=== PATIENT | male | born 1975 | race Caucasian/White ===

== ENCOUNTER 2018-04-21 20:23 | Emergency (ER) | payer OTHER, MEDICAID, SELFPAY ==
[2018-04-21 20:30] VITALS: BP 128/77; PULSE 68; RESP 18; TEMP 36.4; O2SAT 98; BMI 45.9
[2018-04-21] MEDS: CLINDAMYCIN 150 MG CAPSULE 300 MG PO (20:40)
[2018-04-21] MEDS: HYDROCODONE/ACET 5/325 PREPACK 1 BOTTLE MISC (20:46)
--- NOTE | 2018-04-21 20:50 | ED_ITS ---
HPI - Dental/Oral General Chief complaint: Dental/Oral Stated complaint: FACE IS SWELLING Time Seen by Provider: 04/21/18 20:31 Source: patient and family Mode of arrival: ambulatory Limitations: no limitations History of Present Illness HPI Narrative: 42-year-old daily smoker presents with 1 day left-sided facial pain with mild swelling. He has a bad tooth in suggested maybe coming from that. He denies any drainage, fever or chills. He denies any recent trauma. He is otherwise well and free of complaint. MD Complaint: tooth injury 2 1. Onset (ago): hour(s) Duration: constant Severity: mild Relieving factors: nothing Exacerbating factors: nothing Context: history of dental caries Treatment prior to arrival: oral analgesic Related Data Previous Rx's Medication Instructions Recorded codeine-guaifenesin [Cheratussin 5 - 10 ml PO Q4HP PRN #118 ml 05/12/16 AC] clindamycin HCl 300 mg PO QID 7 Days #28 cap 04/21/18 Allergies Allergy/AdvReac Type Severity Reaction Status Date / Time Penicillins [PENICILLINS] Allergy Unknown Verified 04/21/18 20:33 Review of Systems Review of Systems All systems reviewed & are unremarkable except as noted in HPI and below Constitutional Denies chills, Denies fever(s), Denies lethargy and Denies weakness Eyes Denies change in vision, Denies eye discharge, Denies irritation and Denies loss of vision ENT Ears, Nose, Mouth, and Throat: Denies change in voice, Reports dental pain, Denies neck pain and Denies sore throat Cardiovascular Denies chest pain, Denies irregular heart rhythm, Denies lightheadedness, Denies palpitations, Denies dyspnea, Denies dyspnea on exertion and Denies orthopnea Respiratory Denies cough, Denies dyspnea, Denies dyspnea on exertion and Denies wheezing Gastrointestinal Gastrointestinal: Denies abdominal pain, Denies change in bowel habits, Denies diarrhea, Denies nausea and Denies vomiting Genitourinary Denies hematuria, Denies flank pain, Denies urinary incontinence and Denies urinary urgency Musculoskeletal Denies neck pain Integumentary/Breasts Denies pruritus, Denies erythema, Denies rash and Denies wounds Neurologic Denies confusion, Denies loss of vision and Denies weakness Psychiatric Denies anxiety, Denies confusion, Denies depression, Denies homicidal ideation and Denies suicidal ideation Endocrine Denies palpitations Hematologic/Lymphatic Denies easy bruising Allergic/Immunologic Denies wheezing Exam Narrative Exam Narrative: GEN: AOx3 and in mild distress EYES: Pupils are equal, round, and reactive to light and accommodation. Extraoccular muscles are intact bilaterally. There is no subconjunctival hemorrhage or exudate. FACE: mild L facial swelling, no warmth, erythema, induration or fluctuance. DENTAL: widespread poor dentition, old fractured tooth in left upper. No abscess CHEST: Lungs are clear to auscultation bilaterally and free of wheezes, rales, or rhonchi. Heart rate is regular rhythm, there are no murmurs, clicks, rubs, or gallops. There is no chest wall tenderness. ABD: Abdomen is soft and nontender. There is no guarding or rebound. Bowel sounds are normal in all 4 quadrants. There is no mass or organomegaly. EXT: Full painless ROM of all extremities with no loss of sensation or strength. SKIN: Warm, pink, and dry. No erythema or rash Initial Vital Signs Initial Vital Signs: Vital Signs Temperature 97.5 F L 04/21/18 20:30 Pulse Rate 68 04/21/18 20:30 Respiratory Rate 18 04/21/18 20:30 Blood Pressure 128/77 04/21/18 20:30 Pulse Oximetry 98 04/21/18 20:30 Course Orders Ordered: Discontinued Medications Hydrocodone Bitart/Acetaminophen (Vicodin Prepack) 1 bottle MISC SEEINSTR ONE Stop: 04/21/18 20:44 Last Admin: 04/21/18 20:46 Dose: 1 bottle Clindamycin HCl (Cleocin) 300 mg PO NOW ONE Stop: 04/21/18 20:37 Last Admin: 04/21/18 20:40 Dose: 300 mg Vital Signs - 8 hr 04/21/18 20:30 Temperature 97.5 F L Pulse Rate 68 Respiratory Rate 18 Blood Pressure 128/77 Pulse Oximetry 98 Discharge Plan Departure Patient Disposition: Home Clinical Impression: Dental abscess Discharge Date/Time: 04/21/18 21:03 Interventions: ED Discharge Assessment Last Done: 04/21/18 21:03 Instructions: DI for Dental Pain Activity Restrictions/Additional Instructions: *You have been diagnosed with [ facial swelling, dental pain ] *What to do: *Take medications as directed *Follow up with your dental provider in 2-3 days, call for an appointment. Let them know you were seen in the Emergency Department and that we ask that you be seen in follow up *Return to ER if you should have any new, worsening or concerning symptoms Prescriptions: New clindamycin HCl 300 mg capsule 300 mg PO QID 7 Days Qty: 28 RF: 0 No Action codeine-guaifenesin [Cheratussin AC] 118 ML liquid 5 - 10 ml PO Q4HP PRNQty: 118 RF: 0
== END 2018-04-21 21:03 | disposition home or self-care (01) ==
PROVIDERS: Emergency Provider Emergency Medicine
DX: K04.7 Periapical abscess without sinus (principal)
CPT/HCPCS: 99282

== ENCOUNTER 2018-04-22 02:26 | Inpatient (IN) | payer OTHER, MEDICAID, SELFPAY ==
[2018-04-22] VITALS (37 sets, daily range): BP systolic 87–204; BP diastolic 38–130; PULSE 57–91; RESP 14–24; TEMP 36.4–37; O2SAT 89–100; BMI 53.9; BMI 54.1
--- NOTE | 2018-04-22 | DI.RAD.S_ITS ---
PROCEDURE: XR CHEST 1V INDICATIONS: intubation, allergic reaction, NG Placement TECHNIQUE: One view of the chest was acquired. COMPARISON: [facility], , CHEST 1 VIEW, 03/22/2017, 8:24. FINDINGS: Surgical changes and devices: ET tube projects approximately 3.1 cm superior to the gold. Tube is coiled within the neck which likely represents NG tube. Lungs and pleura: No pleural effusions or pneumothorax. Lungs are hypoinflated. Increased opacification at the left lung base which could represent atelectasis, aspiration or pneumonia. Mediastinum: Mediastinal contours appear normal. Heart size is normal. Bones and chest wall: No suspicious bony lesions. Overlying soft tissues appear unremarkable. IMPRESSION: ET tube projects approximately 3.1 cm superior to the gold. Probable NG tube is coiled within the neck. Dictated by: Usha Tsai MD, PhD on 04/22/2018 at 9:06 Approved by: Usha Tsai MD, PhD on 04/22/2018 at 9:07
[2018-04-22] MEDS: ONDANSETRON 4 MG/2 ML INJ IV (02:45)
--- NOTE | 2018-04-22 02:45 | PC.NURSE ---
Pt presents with worsening facial swelling. Pt now unable to handle secretions and audible stridor. Dr Mccall was immediately at bedside. 0245--18G PIV established in L and R AC's. 0250--Lidocaine jelly gargle and 2% Lidocaine nebulized. 025--100 mg Propofol given x2 for a total of 200mg by Dr Mccall. 100 mg Rocuronium given Intubation attempted with 7.5 russian 030--Abdominal distention noted, extubated, re-intubated. 301--RT bagging. Stomach contents coming out ET tube. Suction performed. 306--Extubated 030--RT using BVM to bag pt. 0311--10 mg Reglan given 031--Re-intubated with 7.5 russian, CO2 color change to yellow noted. Equal rise and fall of chest when bagged. 0319--16G NG tube placed in L Nare. 0325--Propofol drip started per order. 0345--16 Occitan deras placed.
--- NOTE | 2018-04-22 02:45 | PC.NURSE ---
Pt presented for worsening facial swelling, compared to earlier this evening breathing now labored and stridorous.
[2018-04-22 02:50] LABS: Add Manual Diff / Slide Review NO; Basophils Percent Auto 0.9 % (0-2); Eosinophils Percent Auto 3.5 % (2-4); Hematocrit 40.6 % (41-53); Hemoglobin 13.6 g/dL (13.5-17.5); Lymphocytes Percent Auto 13.5 % (25-40); Mean Corpuscular HGB Conc 33.5 % (30-36); Mean Corpuscular Hemoglobin 27.6 PG (26-34); Mean Corpuscular Volume 82.5 fL (80-100); Monocytes Percent Auto 10.4 % (3-14); Neutrophils Absolute Auto 8600 /uL (1500-7000); Neutrophils Percent Auto 71.7 % (50-75); Platelet Count 228 X10^3/uL (150-400); Red Blood Cell Count 4.92 X10^6/uL (4.5-5.9); Red Cell Distribution Width 15.8 % (11.6-14.8)
[2018-04-22] MEDS: KETAMINE 500 MG/5 ML INJ 160 MG IV (02:54)
[2018-04-22 02:59] LABS: Alanine Aminotransferase 35 IU/L (21-72); Albumin 3.9 g/dL (3.5-5.0); Albumin Globulin Ratio 1.2 (1.0-2.8); Alkaline Phosphatase 93 U/L (38-126); Aspartate Aminotransferase 24 IU/L (17-59); BUN Creatinine Ratio 18.8 (6-22); Bilirubin Total 0.4 mg/dL (0.2-1.3); Blood Urea Nitrogen 15 mg/dL (9-20); Calcium 8.8 mg/dL (8.4-10.2); Carbon Dioxide 26 mmol/L (22-32); Chloride 102 mmol/L (98-107); Estimated Glomerular Filt Rate > 60.0 mL/min (>60); Globulin 3.2 g/dL (1.7-4.1); Glucose 249 mg/dL (70-100); HEMOLYSIS 18 (0-50); Potassium 4.1 mmol/L (3.4-5.1); Sodium 138 mmol/L (137-145); Total Protein 7.1 g/dL (6.3-8.2)
[2018-04-22] MEDS: PROPOFOL 200 MG/20 ML VIAL IV (02:59)
[2018-04-22] MEDS: ROCURONIUM 50 MG/5 ML VIAL 100 MG IV (02:59)
[2018-04-22] MEDS: METOCLOPRAMIDE 10 MG/2 ML INJ IV (03:10)
[2018-04-22] MEDS: PROPOFOL 1,000 MG/100 ML VIAL 19.323 MG IV ×2 (03:25→08:45)
[2018-04-22] MEDS: fentaNYL 100 MCG/2 ML INJ IV ×2 (03:35→04:20)
--- NOTE | 2018-04-22 03:48 | ED_ITS ---
HPI - Allergic Reaction General Chief complaint: Allergic Reaction Stated complaint: facial swelling Time Seen by Provider: 04/22/18 02:29 Source: patient and family Mode of arrival: ambulatory Limitations: no limitations History of Present Illness HPI narrative: 42-year-old smoking male returns for the 2nd time this evening and worsening left-sided facial swelling and complains of the sensation that he is choking on his own spit. He feels swelling in his throat. He does have sleep apnea and morbid obesity at baseline. He was seen earlier for dental pain and left-sided facial swelling. At that point time he had minimal left- sided facial swelling and no stridor or possible airway involvement. He was given a clindamycin prepack and hydrocodone prepack MD complaint: allergic reaction and facial swelling Onset (ago): hour(s) Exposure: medication Symptoms: facial swelling and difficulty swallowing Severity: moderate Treatment prior to arrival: steroids Previous Allergic Reaction History: none Related Data Previous Rx's Medication Instructions Recorded codeine-guaifenesin [Cheratussin 5 - 10 ml PO Q4HP PRN #118 ml 05/12/16 AC] clindamycin HCl 300 mg PO QID 7 Days #28 cap 04/21/18 Allergies Allergy/AdvReac Type Severity Reaction Status Date / Time Penicillins [PENICILLINS] Allergy Unknown Verified 04/21/18 20:33 Review of Systems Review of Systems All systems reviewed & are unremarkable except as noted in HPI and below Constitutional Denies chills, Denies fever(s), Denies lethargy and Denies weakness Eyes Denies change in vision, Denies eye discharge, Denies irritation and Denies loss of vision ENT Ears, Nose, Mouth, and Throat: Reports change in voice, Denies neck pain, Denies sore throat and Reports throat swelling Cardiovascular Denies chest pain, Denies irregular heart rhythm, Denies lightheadedness, Denies palpitations, Reports dyspnea, Denies dyspnea on exertion and Denies orthopnea Respiratory Reports cough, Reports dyspnea, Denies dyspnea on exertion and Denies wheezing Gastrointestinal Gastrointestinal: Denies abdominal pain, Denies change in bowel habits, Denies diarrhea, Denies nausea and Denies vomiting Genitourinary Denies hematuria, Denies flank pain, Denies urinary incontinence and Denies urinary urgency Musculoskeletal Denies neck pain Integumentary/Breasts Denies pruritus, Denies erythema, Denies rash and Denies wounds Neurologic Denies confusion, Denies loss of vision and Denies weakness Psychiatric Denies anxiety, Denies confusion, Denies depression, Denies homicidal ideation and Denies suicidal ideation Endocrine Denies palpitations Hematologic/Lymphatic Denies easy bruising Allergic/Immunologic Reports throat swelling and Denies wheezing Exam Narrative Exam Narrative: GENERAL: 42-year-old male with distinct change prior to earlier. In distress, with stridor HEAD: Atraumatic. Normocephalic. No temporal or scalp tenderness. EYES: Pupils equal round and reactive. Extraocular motions intact. No scleral icterus. No injection or drainage. ENT: Nose without bleeding, purulent drainage or septal hematoma. Throat without erythema, tonsillar hypertrophy or exudate. Uvula midline. Airway patent. NECK: Trachea midline. No JVD or lymphadenopathy. Supple, nontender, no meningeal signs. CARDIOVASCULAR: Regular rate and rhythm without murmurs, gallops, or rubs. RESPIRATORY: Stridor lung sounds. Breath sounds equal bilaterally. No wheezes, rales, or rhonchi. GASTROINTESTINAL: Abdomen soft, non-tender, nondistended. No hepato-splenomegaly , or palpable masses. No guarding. EXTREMITIES: No clubbing, cyanosis, or edema. No joint tenderness, effusion, or edema noted. BACK: Nontender without deformity or crepitance. No flank tenderness. NEURO: AOx3. SKIN: No rash or erythema. Initial Vital Signs Initial Vital Signs: Vital Signs Pulse Rate 79 04/22/18 02:30 Respiratory Rate 21 04/22/18 02:30 Blood Pressure 149/87 H 04/22/18 02:30 Pulse Oximetry 97 04/22/18 02:30 Procedures Intubation Time out performed: Yes sedative: Ketamine Mg Given: 160 paralytic: Rocuronium Mg Given: 100 Laryngoscope: other Assist Device Used: Bougie ET Tube Size: 7.5 ET Tube Uncuffed: No Tube Secured Depth (cm): 25 Tube Secured Location: lips Tube Placement Confirmation: Visualized tube passing through cords and Equal breath sounds bilaterally Additional Comments: see above. Intubation successful but became dislodged during movement and likely become an esophageal airway, patient had extensive vomitus and likely aspiration. Course Orders Ordered: ED Orders 04/22/18 XR chest 1V Stat 04/22/18 02:35 Complete Blood Count AUTO DIFF Stat Comprehensive Metabolic Panel Stat 04/22/18 02:43 Blood Culture Stat 04/22/18 04:05 Arterial Blood Gas Routine 04/22/18 04:09 CT soft tissue neck w con Stat Propofol (Propofol) 1,000 mg in 100 mls @ 19.323 mls/hr IV TITRATE TAMRA; Protocol Last Admin: 04/22/18 03:25 Dose: 20 mcg/kg/min, 19.323 mls/hr Ondansetron HCl (Zofran) 4 mg IV Q4HR PRN PRN Reason: Nausea And Vomiting Last Admin: 04/22/18 02:45 Dose: 4 mg Discontinued Medications Fentanyl (Sublimaze) 100 mcg IV NOW ONE Stop: 04/22/18 03:36 Last Admin: 04/22/18 03:35 Dose: 100 mcg Fentanyl (Sublimaze) 100 mcg IV NOW ONE Stop: 04/22/18 04:21 Last Admin: 04/22/18 04:20 Dose: 100 mcg Dexamethasone 20 mg/ Sodium (Chloride) 52 mls @ 208 mls/hr IV NOW ONE Stop: 04/22/18 02:43 Last Infusion: 04/22/18 04:45 Dose: 0 mls/hr Admin: 04/22/18 04:30 Dose: 208 mls/hr Sodium Chloride (Normal Saline 0.9%) 1,000 mls @ 1,000 mls/hr IV BOLUS ONE Stop: 04/22/18 03:41 Last Admin: 04/22/18 04:50 Dose: 150 mls/hr Ketamine HCl (Ketalar) 160 mg 1 mg/kg (160 mg) IV NOW ONE Stop: 04/22/18 02:45 Last Admin: 04/22/18 02:54 Dose: 160 mg Metoclopramide HCl (Reglan) 10 mg IV NOW ONE Stop: 04/22/18 03:11 Last Admin: 04/22/18 03:10 Dose: 10 mg Propofol (Diprivan) 200 mg IV NOW ONE Stop: 04/22/18 02:56 Last Admin: 04/22/18 02:59 Dose: 200 mg Rocuronium Jolo (Zemuron) 100 mg IV NOW ONE Stop: 04/22/18 04:20 Last Admin: 04/22/18 02:59 Dose: 100 mg Reevaluation(s) Reevaluation #1: discussed severity of illness with patient and worry about possible airway compromise, compounded by the hx of MARIO and morbid obesity. We discussed awake intubation and prepared for possible cric if needed. Patient had only unilateral swelling and pain which is worse than earlier. Allergic reaction considered, but thought less likely than infectious etiology given lack of tongue, or lip swelling, no wheeze, and no pruritic rash or hives. Larger concern for extension of infectious etiology extending into throat. Patient provided verbal consent to process. Aerosolized lidocaine and viscous lido provided along with zofran. Difficult airway cart to bedside including bougie and 11 blade. Patient given ketamine and was successfully intubated on first pass will sitting upright, visualized by glidescope with placement by bougie. Patient given bolus of propofol and rocuronium. Equal B/L breathsounds. Patient was lowered flat and became difficult to bag and then began vomiting copious amounts of food colored emesis. He had continued desaturations and then emesis came out ETT. Extensive suctioning was unsuccessful and tube was removed. He was successfully bagged back up to 90s while new ETT acquired. Suspect the tube became dislodged while he was repositioned. Extensive suctioning peformed and NG placed. Patient again successfully intubated on 1st pass with video laryngoscopy and patient easily bagged up to low 90s. CXR confirms placement. Consultations Consultation #1: Dr. Núñez happy to accept. Request to hold for 45 minutes until new doc arrives. Patient remains stable. Discussion regarding etiology of airway compromise. Will hold on further ABX for now Vital Signs - 8 hr 04/22/18 02:30 04/22/18 02:35 04/22/18 02:37 Temperature 98.6 F Pulse Rate 79 70 83 Respiratory Rate 21 14 23 Blood Pressure Blood Pressure [Right Arm] 149/87 H 149/78 H Pulse Oximetry 97 99 04/22/18 02:42 04/22/18 03:30 04/22/18 03:36 Temperature 98.6 F Pulse Rate 83 70 81 Respiratory Rate 23 18 15 Blood Pressure 149/78 H Blood Pressure [Right Arm] 171/79 H 171/79 H Pulse Oximetry 99 89 L MDM - Allergic Reaction Differential Diagnosis Differential diagnosis: Likely allergic reaction, angioedema and adverse reaction to drug Medical Records Attestation: I reviewed the patient's medical records. Lab Data Attestation: I reviewed the patient's lab results. Result diagrams: 04/22/18 02:35 04/22/18 02:35 Lab Results 04/22/18 04/22/18 04/22/18 Range/Units 02:35 02:35 04:05 WBC 12.0 H (4.5-11.0) X10^3/uL RBC 4.92 (4.5-5.9) X10^6/uL Hgb 13.6 (13.5-17.5) g/dL Hct 40.6 L (41-53) % MCV 82.5 (80-100) fL MCH 27.6 (26-34) PG MCHC 33.5 (30-36) % RDW 15.8 H (11.6-14.8) % Plt Count 228 (150-400) X10^3/uL Neut % (Auto) 71.7 (50-75) % Lymph % (Auto) 13.5 L (25-40) % [place] % (Auto) 10.4 (3-14) % Eos % (Auto) 3.5 (2-4) % Baso % (Auto) 0.9 (0-2) % Neut # (Auto) 8600 H (7624-4968) /uL ABG pH 7.28 L* (7.35-7.45) ABG pCO2 58.2 H (35-45) mmHg ABG pO2 73 L (80-100) mmHg ABG HCO3 27 H (22-26) mmol/L ABG Total CO2 29 (21-31) mmol/L ABG O2 Saturation 92 L (95-100) % ABG Base Excess 0.0 (-2-2) mmol/L FiO2 100 Sodium 138 (137-145) mmol/L Potassium 4.1 (3.4-5.1) mmol/L Chloride 102 (98-107) mmol/L Carbon Dioxide 26 (22-32) mmol/L BUN 15 (9-20) mg/dL Creatinine 0.80 (0.66-1.25) mg/dL Estimated GFR > 60.0 (>60) mL/min BUN/Creatinine Ratio 18.8 (6-22) Glucose 249 H (70-100) mg/dL Calcium 8.8 (8.4-10.2) mg/dL Total Bilirubin 0.4 (0.2-1.3) mg/dL AST 24 (17-59) IU/L ALT 35 (21-72) IU/L Alkaline Phosphatase 93 (38-126) U/L Total Protein 7.1 (6.3-8.2) g/dL Albumin 3.9 (3.5-5.0) g/dL Globulin 3.2 (1.7-4.1) g/dL Albumin/Globulin Ratio 1.2 (1.0-2.8) MDM Narrative Medical decision making narrative: etiology of stridor remains unclear. Allergic reaction considered, but unilateral findings are atypical and no rash, urticaria or other Infectious etiology considered most likely cause given odontogenic facial infection, no obvious abscess noted on CT Foreign body considered, but none noted on intubation Discharge Plan Departure Patient Disposition: Admitted As Inpatient Clinical Impression: Stridor, Airway compromise, Odontogenic infection of jaw
--- NOTE | 2018-04-22 03:51 | RT ---
CALLED TO ED FOR PT W/ STRIDOR. ASSISTED ED DOCTOR W/ INTUBATION. PT WAS A DIFFICULT INTUBATION. 3RD ATTEMPT SUCCESSFUL. ETT SECURED USING ETT DEL ROSARIO. BITE-BLOCK IN PLACE. ETT PLACEMENT CONFIRMED VIA CO2 COLOR-CHANGE DETECTOR, AUSCULTATION, AND XRAY. PT PLACED ON LTV (SEE VENT FLOWSHEET FOR SETTINGS). ABG DRAWN.
--- NOTE | 2018-04-22 04:09 | DI.CT.S_ITS ---
PROCEDURE: CT SOFT TISSUE NECK W CON INDICATIONS: airway swelling, now intubated TECHNIQUE: After the administration of intravenous contrast, 3.0 mm axial sections acquired from the sella to the aortic arch. Additional oblique axial 3.0 mm sections acquired through the pharynx. 3 mm thick coronal and sagittal reformats were generated. For radiation dose reduction, the following was used: automated exposure control. COMPARISON: [facility], CR, XR CHEST 1V, 04/22/2018, 3:02. FINDINGS: Image quality: Excellent. Lymph nodes: No enlarged lymph nodes seen throughout the neck. Vessels: Visualized vasculature appears patent. Neck spaces: ET tube and NG tube are noted. Tip of ET tube projects approximately 3 cm superior to the gold. NG tube is coiled within the nasopharynx, oropharynx, the hypopharynx and the upper esophagus. The oropharynx, nasopharynx, and pharynx demonstrate no mucosal lesions. The vocal cords, false vocal cords, pyriform sinuses, epiglottis, vallecula, and tongue base all appear normal. Extramucosal spaces appear unremarkable. Glands: The parotid and submandibular glands appear normal. Miscellaneous: Visualized brain and orbits appear normal. Partially visualized consolidation noted in the posterior aspect of the visualized lower lobes. Partially visualized bilateral pleural fluid collections noted. Superficial soft tissues appear normal. Bones: Mildly displaced bilateral nasal bone fractures. Spine degenerative disc disease and facet arthropathy. Mucosal thickening noted in the left maxillary sinus and scattered throughout the anterior ethmoid air cells bilaterally. The mastoids appear unremarkable. IMPRESSION: 1. No abscess identified. 2. ET tube projects 3 cm craniocaudal. 3. NG tube is coiled within the nasopharynx, oropharynx, hypopharynx and upper esophagus. 4. Partially visualized bilateral pleural fluid collections and lower lobe lung consolidation. 5. Atherosclerotic calcifications noted in the visualized coronary vasculature. Dictated by: Usha Tsai MD, PhD on 04/22/2018 at 7:34 Approved by: Usha Tsai MD, PhD on 04/22/2018 at 7:43
[2018-04-22 04:21] LABS: PCO2 ABG 58.2 mmHg (35-45); pH ABG 7.28 (7.35-7.45)
[2018-04-22 04:22] LABS: Fractionated Inspired Oxygen 100; HCO3 ABG 27 mmol/L (22-26); Oxygen Saturation ABG 92 % (95-100); PO2 ABG 73 mmHg (80-100); TCO2 ABG 29 mmol/L (21-31)
[2018-04-22] MEDS: DEXAMETHASONE 20 MG in SODIUM CHLORIDE 0.9% 50 ML 208 ML IV (04:30)
[2018-04-22] MEDS: SODIUM CHLORIDE 0.9% 1,000 ML 150 ML IV (04:50)
--- NOTE | 2018-04-22 05:45 | PC.NURSE ---
Assisted DMITRIY Fonseca with replacing NG tube. 16French in Priscila mejia.
--- NOTE | 2018-04-22 06:10 | PC.NURSE ---
This nurse was called out to front end software engineer for triage. Once I opened the door I could heat the pt breathing with loud strider from across the room. Pt was attempting to communicate with registration and appeared very agitated trying to explain something. RT was immediatly contacted with voicera and pt was brought back to room 2. Provider entered room 2 with this nurse, RT, Ofelia RN and patient. Provider immediatley began to plan intubation communicating to staff the emergent needs and writing medications on the white board for intubation. Pt was placed on non rebreather at 15+L O2 in preparation for intubation.
--- NOTE | 2018-04-22 06:34 | PC.NURSE ---
Third PIV placed in right hand, 20G, secured with tegaderm, tape and coban
--- NOTE | 2018-04-22 06:55 | PC.NURSE ---
Pt began to move more and was bucking his vent. Provider notified and 50 of fentyl order recieved.
[2018-04-22] MEDS: fentaNYL 100 MCG/2 ML INJ 50 MCG IV (06:57)
--- NOTE | 2018-04-22 07:02 | PC.NURSE ---
Pt friend Sade arrived and at bedside.
--- NOTE | 2018-04-22 07:33 | PC.NURSE ---
additional vitals in end case in chart.
--- NOTE | 2018-04-22 07:46 | DI.RAD.S_ITS ---
PROCEDURE: XR CHEST 1V INDICATIONS: ett/ngt placement TECHNIQUE: One view of the chest was acquired. COMPARISON: [facility], CR, XR CHEST 1V, 04/22/2018, 3:02. FINDINGS: Surgical changes and devices: The patient is intubated and the endotracheal tube is approximately 2.8 cm above the gold. A nasogastric tube is present, the distal aspect of which is not visualized but is presumably projected over the gastric fundus. Lungs and pleura: Atelectasis or consolidation is present at the left lung base. The lungs are otherwise clear. Mediastinum: Mediastinal contours appear normal. Heart size is normal. Bones and chest wall: No suspicious bony lesions. Overlying soft tissues appear unremarkable. IMPRESSION: Tubes and lines as above. Left basilar atelectasis versus consolidation. Dictated by: Ginny Haines M.D. on 04/22/2018 at 8:42 Approved by: Ginny Haines M.D. on 04/22/2018 at 8:42
--- NOTE | 2018-04-22 08:09 | PC.ADMIT ---
Admission Note: Patient arrived to room 103 from ER via stretcher at 0740. Transferred via slider board with 4 person assist. Bagged during transport and connected to ventilator by RT; settings at 10 PEEP, TV 520, FiO2 0.90, RR 24 at time of arrival. NG tube connected to LIS but shown to be coiled in esophagus per CT scan. NG tube removed and 18g OG tube placed, awaiting CXR to confirm placement. Propofol gtt at 20 mcg/kg/min. SB/SA in the 50s. Soft restraints to both wrists. Price in place and draining clear yellow urine. Dr. Henning at bedside and new orders received. Belongings placed in room closet (clothing). The patient,Monster Arvizu JR,42 y/o, was given written information regarding hospital policies, unit procedures and contact persons. Patient's smoking status: . Vital Signs - 8 hr 04/22/18 02:30 04/22/18 02:35 04/22/18 02:37 Temperature 98.6 F Pulse Rate 79 70 83 Respiratory Rate 21 14 23 Blood Pressure Blood Pressure [Right Arm] 149/87 H 149/78 H Pulse Oximetry 97 99 04/22/18 02:42 04/22/18 03:30 04/22/18 03:36 Temperature 98.6 F Pulse Rate 83 70 81 Respiratory Rate 23 18 15 Blood Pressure 149/78 H Blood Pressure [Right Arm] 171/79 H 171/79 H Pulse Oximetry 99 89 L 04/22/18 04:00 04/22/18 04:30 04/22/18 05:00 Temperature Pulse Rate 91 H 68 62 Respiratory Rate 21 23 23 Blood Pressure Blood Pressure [Right Arm] 204/130 H 88/39 L 95/49 L Pulse Oximetry 94 99 04/22/18 06:01 04/22/18 06:59 Temperature Pulse Rate 87 60 Respiratory Rate 23 24 Blood Pressure Blood Pressure [Right Arm] 101/52 L 101/64 Pulse Oximetry 98 99
--- NOTE | 2018-04-22 08:10 | PM.HP.1 ---
History of Present Illness Date Patient Seen: 04/22/18 Chief complaint: facial swelling Narrative: The patient is a 42-year-old male with a history of morbid obesity and left facial swelling secondary to a dental abscess. He presented to the emergency department April 21, 1 day prior to admission. The patient was given a prepack of clindamycin. The patient returned to the hospital within 24 hr with complaint of increasing left facial swelling and pain. He was noted to have stridor. The patient does have obstructive sleep apnea and morbid obesity. There was concern for aspiration. The patient complained of some throat pain. There was no wheezing noted. There was no rash noted. There was no obvious angioedema. As the patient was stridorous short of breath and continued to have pain he was intubated in the emergency department. During the intubation the patient aspirated his stomach contents. He ultimately was reintubated and transferred to the intensive care unit. The patient is on a ventilator at this time and is unable to provide any history. All history is obtained from the medical record. Patient did have a CT scan of the neck with contrast. This study confirmed no abscess identified. The NG tube was coiled the ET tube project projected 3 cm craniocaudal, bilateral pleural fluid collections and lower lobe consolidation was identified. Family and Social history is unobtainable as the patient is intubated, sedated, and unable to provide. Patient History Medical History Dental abscess (Acute) Morbid obesity (Acute) MARIO (obstructive sleep apnea) (Acute) Surgical History H/O skin graft (Acute) Family & Social History Tobacco & Substance use: alcohol intake frequency 0-2 drinks per day Meds Home Medications Medication Instructions Recorded Confirmed Type clindamycin HCl 300 mg PO QID 7 Days #28 cap 04/21/18 04/22/18 Rx codeine-guaifenesin [Cheratussin 5 - 10 ml PO Q4HP PRN 04/22/18 04/22/18 History AC] Allergies Allergy/AdvReac Type Severity Reaction Status Date / Time Penicillins [PENICILLINS] Allergy Unknown Verified 04/21/18 20:33 Review of Systems Review of Systems unobtainable due to mental status and other (unobtainable as the patient is sedated and on the ventilator) Exam Vital Signs (past 8 hours): - 04/22/18 02:30 04/22/18 02:35 04/22/18 02:37 Temperature 98.6 F Pulse Rate 79 70 83 Respiratory Rate 21 14 23 Blood Pressure Blood Pressure [Right Arm] 149/87 H 149/78 H Pulse Oximetry 97 99 04/22/18 02:42 04/22/18 03:30 04/22/18 03:36 Temperature 98.6 F Pulse Rate 83 70 81 Respiratory Rate 23 18 15 Blood Pressure 149/78 H Blood Pressure [Right Arm] 171/79 H 171/79 H Pulse Oximetry 99 89 L 04/22/18 04:00 04/22/18 04:30 04/22/18 05:00 Temperature Pulse Rate 91 H 68 62 Respiratory Rate 21 23 23 Blood Pressure Blood Pressure [Right Arm] 204/130 H 88/39 L 95/49 L Pulse Oximetry 94 99 04/22/18 06:01 04/22/18 06:59 Temperature Pulse Rate 87 60 Respiratory Rate 23 24 Blood Pressure Blood Pressure [Right Arm] 101/52 L 101/64 Pulse Oximetry 98 99 Fraction of Inspired Oxygen 90 Oxygen Delivery Method Mechanical Ventilation Narrative Exam Narrative: Morbidly obese male intubated, and in no acute distress HEENT: Normocephalic atraumatic, sclerae anicteric, the patient is intubated, left jaw is palpated there is no firmness or swelling appreciated Neck: Supple Lungs: Decreased breath sounds with occasional crackles in the left upper chest Cardiac exam: Regular rate rhythm normal S1 and S2 Abdomen: Obese and soft: There are scars from prior dickey on the abdomen and upper chest Extremity: 1+ edema Neuro exam: Unable to appreciate given sedation for ventilation Objective Labs Result Diagrams: 04/22/18 02:35 04/22/18 02:35 Labs: Laboratory Results - last 24 hr 04/22/18 04/22/18 04/22/18 02:35 02:35 04:05 WBC 12.0 H RBC 4.92 Hgb 13.6 Hct 40.6 L MCV 82.5 MCH 27.6 MCHC 33.5 RDW 15.8 H Plt Count 228 Neut % (Auto) 71.7 Lymph % (Auto) 13.5 L [place] % (Auto) 10.4 Eos % (Auto) 3.5 Baso % (Auto) 0.9 Neut # (Auto) 8600 H ABG pH 7.28 L* ABG pCO2 58.2 H ABG pO2 73 L ABG HCO3 27 H ABG Total CO2 29 ABG O2 Saturation 92 L ABG Base Excess 0.0 FiO2 100 Sodium 138 Potassium 4.1 Chloride 102 Carbon Dioxide 26 BUN 15 Creatinine 0.80 Estimated GFR > 60.0 BUN/Creatinine Ratio 18.8 Glucose 249 H Calcium 8.8 Total Bilirubin 0.4 AST 24 ALT 35 Alkaline Phosphatase 93 Total Protein 7.1 Albumin 3.9 Globulin 3.2 Albumin/Globulin Ratio 1.2 Assessment & Plan (1) Morbid obesity: Problem details: Continue IV hydration at this time. Nutrition consult when the patient is intubated Current visit: Yes Status: Acute (2) Dental abscess: Problem details: Will continue IV clindamycin, increase dosing to 600 Q 6, will add levofloxacin 750 q.day. Current visit: Yes Status: Acute (3) Pneumonia: Problem details: Patient had clear aspiration event during his intubation. Will continue levofloxacin and clindamycin for aspiration pneumonitis. Current visit: No Status: Acute (4) Dental abscess: Current visit: No Status: Acute (5) Stridor: Problem details: The patient is on IV steroids. Will continue Current visit: Yes Status: Acute (6) Acute respiratory failure: Problem details: Patient is intubated we will attempt pressure support weaning trial today if tolerated consider extubation Current visit: Yes Status: Acute
[2018-04-22] MEDS: DEXTROSE 5%-0.9% NS 1,000 ML 100 ML IV (08:35)
[2018-04-22] MEDS: ENOXAPARIN 40 MG/0.4 ML SYRINGE SUBCUT (09:08)
[2018-04-22] MEDS: levoFLOXacin 750 MG/150 ML PIGGYBACK 100 MG IV (09:09)
[2018-04-22] MEDS: INSULIN ASPART 100 UNIT/ML INSULN PEN SUBCUT ×4 (09:09→23:59)
[2018-04-22] MEDS: methylPREDNISolone 125 MG/2 ML VIAL 60 MG IV ×3 (09:12→21:09)
[2018-04-22 09:14] LABS: HCO3 ABG 26 mmol/L (22-26); PCO2 ABG 51.9 mmHg (35-45); PO2 ABG 201 mmHg (80-100); TCO2 ABG 28 mmol/L (21-31); pH ABG 7.31 (7.35-7.45)
[2018-04-22 09:15] LABS: Fractionated Inspired Oxygen 90; Oxygen Saturation ABG 100 % (95-100)
[2018-04-22 10:40] LABS: Fractionated Inspired Oxygen 65; HCO3 ABG 24 mmol/L (22-26); Oxygen Saturation ABG 99 % (95-100); PCO2 ABG 43.1 mmHg (35-45); PO2 ABG 123 mmHg (80-100); TCO2 ABG 26 mmol/L (21-31); pH ABG 7.36 (7.35-7.45)
[2018-04-22 10:49] LABS: Urine Amphetamines Positive (Negative); Urine Barbiturates Negative (Negative); Urine Benzodiazepines Negative (Negative); Urine Cocaine Negative (Negative); Urine MDMA Positive (Negative); Urine Methamphetamines Positive (Negative); Urine Morphine/Opi cutoff 2000 Positive (Negative); Urine Phencyclidine Negative (Negative); Urine Tetrahydrocannabinol Positive (Negative)
[2018-04-22 10:50] LABS: Urine Methadone Negative (Negative); Urine Oxycodone Positive (Negative); Urine Tricyclic Antidepressant Positive (Negative)
[2018-04-22] MEDS: metroNIDAZOLE 500 MG/100 ML PIGGYBACK 100 MG IV ×3 (11:06→23:34)
[2018-04-22] MEDS: FAMOTIDINE 20 MG/50 ML PIGGYBACK 200 MG IV (11:44)
[2018-04-22] MEDS: DEXTROSE 5% WATER 500 ML IV (12:17)
[2018-04-22] MEDS: PROPOFOL 1,000 MG/100 ML VIAL 48.308 MG IV (12:18)
[2018-04-22] MEDS: PROPOFOL 1,000 MG/100 ML VIAL 33.815 MG IV (14:34)
[2018-04-22] MEDS: MORPHINE 2 MG/ML INJ IV ×2 (14:34→18:12)
--- NOTE | 2018-04-22 18:06 | PC.NURSE ---
Addendum entered by Fabiola Villar R.N. 04/22/18 21:28: 2030 - Pt S.O. asking questions r/t treatment plan, why are you just leaving him like this? I have to call his mother, what am I suppose to tell her? Explain care plan, routine and anticipated weening plan. Reviewed antibiotic therapy and nighttime poc. She verbalized understanding and reports that she will update pt mother. Pt repositioned. Oral care and suction. Propofol infusing at 45 mcg/kg/min. Agitated and reaching for tube during care. Diaphoretic. A-febril. Room temp adjusted and fan provided. Restraints removed for care and then replaced. Original Note: 1645 - Pt awake and restless, attempting to reach for ET tube. Kicking legs. Increased propofol to 45mcg/kg/min. Pt able to nod head yes to question of pain, no to mouth pain, yes to back pain. Called for assist of additional staff to reposition. Restraints in place. Monitor.
[2018-04-22] MEDS: PROPOFOL 1,000 MG/100 ML VIAL 43.477 MG IV ×3 (19:02→23:34)
[2018-04-23] VITALS (26 sets, daily range): BP systolic 84–141; BP diastolic 40–84; PULSE 67–93; RESP 14–26; TEMP 36.5–37.3; O2SAT 91–99
[2018-04-23] MEDS: FAMOTIDINE 20 MG/50 ML PIGGYBACK 200 MG IV ×3 (00:58→23:49)
[2018-04-23] MEDS: PROPOFOL 1,000 MG/100 ML VIAL 43.477 MG IV ×3 (01:36→08:23)
[2018-04-23] MEDS: methylPREDNISolone 125 MG/2 ML VIAL 60 MG IV ×2 (01:48→08:54)
[2018-04-23] MEDS: MORPHINE 2 MG/ML INJ IV (03:21)
[2018-04-23] MEDS: metroNIDAZOLE 500 MG/100 ML PIGGYBACK 100 MG IV ×4 (04:52→22:32)
[2018-04-23 04:59] LABS: Add Manual Diff / Slide Review NO; Basophils Percent Auto 0.1 % (0-2); Hematocrit 38.6 % (41-53); Hemoglobin 12.6 g/dL (13.5-17.5); Mean Corpuscular HGB Conc 32.6 % (30-36); Mean Corpuscular Hemoglobin 27.2 PG (26-34); Mean Corpuscular Volume 83.5 fL (80-100); Monocytes Percent Auto 5.8 % (3-14); Neutrophils Absolute Auto 11000 /uL (1500-7000); Neutrophils Percent Auto 87.1 % (50-75); Platelet Count 232 X10^3/uL (150-400); Red Blood Cell Count 4.62 X10^6/uL (4.5-5.9); Red Cell Distribution Width 15.5 % (11.6-14.8); White Blood Cell Count 12.6 X10^3/uL (4.5-11.0)
[2018-04-23 05:12] LABS: B Type Natriuretic Peptide < 100 (<100)
[2018-04-23 05:19] LABS: Alanine Aminotransferase 40 IU/L (21-72); Albumin 3.4 g/dL (3.5-5.0); Albumin Globulin Ratio 1.1 (1.0-2.8); Alkaline Phosphatase 57 U/L (38-126); Aspartate Aminotransferase 22 IU/L (17-59); Bilirubin Total 0.3 mg/dL (0.2-1.3); Blood Urea Nitrogen 22 mg/dL (9-20); Calcium 8.5 mg/dL (8.4-10.2); Carbon Dioxide 24 mmol/L (22-32); Chloride 105 mmol/L (98-107); Estimated Glomerular Filt Rate > 60.0 mL/min (>60); Globulin 3.2 g/dL (1.7-4.1); Glucose 243 mg/dL (70-100); HEMOLYSIS < 15 (0-50); Potassium 4.6 mmol/L (3.4-5.1); Sodium 138 mmol/L (137-145); Total Protein 6.6 g/dL (6.3-8.2)
[2018-04-23] MEDS: INSULIN ASPART 100 UNIT/ML INSULN PEN SUBCUT ×4 (05:58→23:49)
[2018-04-23] MEDS: levoFLOXacin 750 MG/150 ML PIGGYBACK 100 MG IV (08:54)
[2018-04-23 08:56] LABS: Fractionated Inspired Oxygen 40; HCO3 ABG 24 mmol/L (22-26); Oxygen Saturation ABG 89 % (95-100); PCO2 ABG 36.2 mmHg (35-45); PO2 ABG 55 mmHg (80-100); TCO2 ABG 25 mmol/L (21-31); pH ABG 7.42 (7.35-7.45)
[2018-04-23] MEDS: DEXTROSE 5%-0.9% NS 1,000 ML 100 ML IV (08:56)
--- NOTE | 2018-04-23 11:20 | P.PN_ITS ---
Subjective Date Patient Seen: 04/23/18 Interval history: Patient is awake and alert during his weaning trial. Respiratory status stayed around 20. He denies any pain at this time pain repeat ABG has improved significantly. Exam Vital Signs (past 8 hours): - 04/23/18 04:00 04/23/18 05:00 04/23/18 06:00 Temperature 99.1 F Pulse Rate 67 74 70 Respiratory Rate 22 19 19 Blood Pressure 95/53 L 102/50 L 84/40 L Pulse Oximetry 93 92 91 04/23/18 06:20 04/23/18 07:00 04/23/18 08:00 Temperature 98.5 F Pulse Rate 67 73 77 Respiratory Rate 20 21 Blood Pressure 92/56 L 100/49 L 114/48 L Pulse Oximetry 91 91 04/23/18 09:00 04/23/18 10:00 04/23/18 10:45 Temperature Pulse Rate 72 71 Respiratory Rate 20 21 Blood Pressure 111/52 L 100/52 L Pulse Oximetry 92 93 97 04/23/18 11:00 Temperature 98.4 F Pulse Rate 81 Respiratory Rate 26 H Blood Pressure 117/69 Pulse Oximetry 98 Fraction of Inspired Oxygen 50 Oxygen Delivery Method Mechanical Ventilation Narrative Exam Narrative: Pleasant gentleman intubated in no obvious distress HEENT: Normocephalic atraumatic intubated Lungs: Decreased breath sounds but no wheezes rhonchi or crackles Cardiac exam: Normal S1-S2 regular rate and rhythm Abdomen: Obese soft and nontender Extremities: 1+ edema bilateral Objective Labs Result Diagrams: 04/23/18 04:36 04/23/18 04:36 Labs: Laboratory Results - last 24 hr 04/22/18 04/23/18 04/23/18 08:25 04:36 04:36 WBC 12.6 H RBC 4.62 Hgb 12.6 L Hct 38.6 L MCV 83.5 MCH 27.2 MCHC 32.6 RDW 15.5 H Plt Count 232 Neut % (Auto) 87.1 H Lymph % (Auto) 7.0 L [place] % (Auto) 5.8 Eos % (Auto) 0.0 L Baso % (Auto) 0.1 Neut # (Auto) 54656 H ABG pH 7.42 ABG pCO2 36.2 ABG pO2 55 L ABG HCO3 24 ABG Total CO2 25 ABG O2 Saturation 89 L ABG Base Excess -1.0 FiO2 40 Sodium 138 Potassium 4.6 Chloride 105 Carbon Dioxide 24 BUN 22 H Creatinine 1.00 Estimated GFR > 60.0 BUN/Creatinine Ratio 22.0 Glucose 243 H Calcium 8.5 Total Bilirubin 0.3 AST 22 ALT 40 Alkaline Phosphatase 57 B-Natriuretic Peptide < 100 Total Protein 6.6 Albumin 3.4 L Globulin 3.2 Albumin/Globulin Ratio 1.1 Assessment & Plan (1) Acute respiratory failure: Problem details: Patient is intubated we will attempt pressure support weaning trial today if tolerated consider extubation Excellent response to weaning trial this morning. ABG has improved. Will attempt extubation today and high-flow oxygen post extubation Current visit: Yes Status: Acute (2) Aspiration pneumonia: Problem details: Continue levofloxacin and Flagyl. The patient had sulema aspiration of stomach contents. Multiple item suction and during intubation Current visit: Yes Status: Acute (3) Dental abscess: Problem details: No further pain at this time. Current visit: No Status: Acute (4) Stridor: Problem details: The patient is on IV steroids. Will continue This has improved will discontinue steroid Current visit: Yes Status: Acute (5) Morbid obesity: Problem details: No intervention at this time Current visit: Yes Status: Acute (6) Hyperglycemia: Problem details: Secondary to steroids. Will continue sliding scale and decrease steroids accordingly. Current visit: Yes Status: Acute
--- NOTE | 2018-04-23 11:29 | RT ---
Spoke with MD Henning at 0840 about patient's AM ABG. Permission given by MD Henning to go up on FIO2 and do a repeat gas which was performed at 1000. CPAP trial started at 1040 per MD Henning and ABG drawn at 1108. Verbal extubation orders given to this RT in the presence of RN Karen Henry. Patient extubated at 1115 and placed of HHFNC of 60%. Sat 98%, RR 26, no stridor auscultated, patient coughing up large amounts of yellow sputum and using [place] to remove from mouth.
[2018-04-23 11:33] LABS: PCO2 ABG 36.2 mmHg (35-45)
[2018-04-23 11:34] LABS: Fractionated Inspired Oxygen 60; HCO3 ABG 23 mmol/L (22-26); Oxygen Saturation ABG 92 % (95-100); PO2 ABG 62 mmHg (80-100); TCO2 ABG 24 mmol/L (21-31); pH ABG 7.42 (7.35-7.45)
[2018-04-23 11:35] LABS: Fractionated Inspired Oxygen 60; HCO3 ABG 23 mmol/L (22-26); Oxygen Saturation ABG 94 % (95-100); PCO2 ABG 34.6 mmHg (35-45); PO2 ABG 68 mmHg (80-100); TCO2 ABG 24 mmol/L (21-31); pH ABG 7.43 (7.35-7.45)
[2018-04-23] MEDS: ENOXAPARIN 40 MG/0.4 ML SYRINGE SUBCUT (11:46)
--- NOTE | 2018-04-23 14:30 | ST.IPCSEOM ---
Care Team Visit Care Team Role Provider Type Juan M Mccall DO Emergency Provider Physician Specialty: Emergency Medicine Address: [address] [place] [address], [id number] Email: [email or web address] Basil Núñez MD Admit Provider Physician Attending Provider Specialty: Internal Medicine Address: [address] [place] [address], [id number] Email: Current Diagnoses Morbid (severe) obesity due to excess calories (04/22/18) Pneumonia, unspecified organism (04/22/18) Pneumonitis due to inhalation of food and vomit (04/22/18) Acute respiratory failure, unspecified whether with hypoxia or hypercapnia (04/22/18) Periapical abscess without sinus (04/22/18) Stridor (04/22/18) Hyperglycemia, unspecified (04/22/18) Past Medical History (Last Updated 04/22/18 @ 08:14 by Caren Henning MD) Dental abscess (Acute Medical) Will continue IV clindamycin, increase dosing to 600 Q 6, will add levofloxacin 750 q.day. Morbid obesity (Acute Medical) Continue IV hydration at this time. Nutrition consult when the patient is intubated MARIO (obstructive sleep apnea) (Acute Medical) Speech-Language Pathology Swallow Evaluation [employer] Clinical Swallow Evaluation Start: 04/23/18 15:26 Freq: Status: Active Protocol: Document 04/23/18 02:20 TLC (Rec: 04/23/18 15:43 TLC [id number]) Clinical Swallow Evaluation Session Time Total Visit Minutes [address] Henning Reason for Referral Post-extubation Setting Assessment Location Acute Care Visit Type Note Type Initial Evaluation Next Note Type Next Note Type Treatment Note Patient Information Identification Type Name History Patient was intubated on for airway protections following swelling of his face caused by a dental abcess per notes. He was extubated at 1115 today and nursing staff is requesting a swallow evaluation to determine safest diet. Subjective Observations Patient sitting up in chair with humidified high flow nasal cannula. He was alert, responsive and conversed appropriately. He was very eager to eat and observed to be impulsive. Evaluation Liquids Trialed Thin Solids Trialed Puree Mechanical Soft Regular Administration Type Self-Feeding Oral Impairment WNL Oral Phase Comments Very slight right tongue tip deviation upon protrusion. No left sided swelling observed. No other impairments or abnormalities identified on the oral [facility] exam. Oral prep and oral phase within functional limits with trials. Pharyngeal Impairment WFL Pharyngeal Phase Comments Patient exhibited occasional cough following bites of mixed tropical fruit. Per nursing, patient has been coughing and spitting up mucous all day. Patient drank 2 cups full of water using consecutive swallows without signs of aspiration. Education was provided regarding aspiration risk given recent extubation and intubation for 24 hours. Patient denies any pain or difficulty swallowing and was very eager to eat and drink. He requested a lunch tray immediately after the evaluation. Discussed importance of slowing rate of intake and maintaining O2 sats in normal limits during meals by taking breaks as needed and breathing in through nose and out through mouth. Aspiration cannot be ruled out without instrumental assessment, however, patient does not present with clinical signs of aspiration. Will continue to monitor for signs. Findings Impressions No signs or symptoms of oral or pharyngeal dysphagia; however, will continue to monitor patient for signs of aspiration. Recommend: regular diet, thin liquids. Distant supervision with cues to slow rate as needed given patient's tendancy toward large bites/ sips and impulsivity. Diet Recommendations Liquids Order Thin Diet Order Regular Medication Recommendations As Tolerated Additional Dietary Needs Reminders to Use Strategies Aspiration Precautions Recommended Precautions Upright at 90 Degrees Small Bites/Sips Additional Precautions Slow rate Treatment Plan Placement Recommendations after Home Discharge Appropriate for Therapy Yes Therapy Recommendations Follow x1 to ensure patient is implementing recommended strategies for safe consumption. Dysphagia Goals Patient will self-monitor and implement recommended strategies as needed during a meal to ensure safety and reduce aspiration risk.
--- NOTE | 2018-04-23 15:04 | CM.DANOTE ---
Discharge Planning/Care Management Document 04/23/18 14:56 (Rec: 04/23/18 15:04 [id number]) Discharge Planning Assessment Assigned Snaker Tractor Driver NICOLE Babin Contact Information Isabel Wilkinson (Mother) [phone]? Advance Directives? No Advance Directives on File No History Provided By Patient Medical Record Comment Emergency Department visit on 04-21-18. Prior Living Arrangements House Comment lives in [place] Comment didn't want to talk about his living arrangement. Just kept saying I have people. Type of transporation used prior to Drives own vehicle admit Independent with ADL's Yes Is patient alert and oriented? Yes Comment Patient has made it clear he will discharge home with family. Discharge Plan Home Additional Comment Met with patient at bedside. Patient was able to be successfully extubated. Patient was agreeable to communicate with [employer] but did not wish to answer any questions about living arrangement or support systems. Patient said he is from [place] and has support. Patient's tox screen positive for multiple substances. Per RN, friends were commenting that patient has to use substances in order to stay up due to severe sleep apnea. Whiteboard Updated in Patient Room with Yes name and ext. # of Snaker Tractor Driver Review Status In Process Please Provide Date Initial DC 04/22/18 Assessment Was Performed Next Review Type Continued Stay Review CM Discharge Assessment Start: 04/22/18 15:06 Freq: Status: Active Protocol: Document 04/22/18 15:06 KJS (Rec: 04/22/18 15:17 KJS [id number]) Discharge Planning Assessment Assigned Snaker Tractor Driver NICOLE Nelson Contact Information Isabelalee Wilkinson (Mother) ? Advance Directives? No Advance Directives on File No History Provided By Medical Record Comment Emergency Department visit on 04-21-18. Comment Unsure at this time. Is patient alert and oriented? No: Currently on vent Comment Pending needs at time of discharge. Comment Unclear at this time. Comment Reviewed EMR. Patient is a morbid obese 42yr old male admitted to [facility] facial swelling secondary to dental abscess. No PCP listed. Primary payor is 1)[facility] 2)Medicaid. Patient at . Emergency department on 04-21-18 complaining of dental pain. Per RN patient placed on clindamycin which he may have had allergic reaction to. [employer] MANAGER unable to complete bedside assessment today due to patient being intubated and nobody at bedside. Spoke with RN/Amy and she reports no family or friend's have called or been by. [employer] MANAGER attempted to call patient's contact/Mother Isabel Wilkinson at [phone] unfortunatley phone number disconnected. RN aware that if anyone comes by to visit or call to please obtain contact information. CM team to follow closely for needs. Unclear when patient will be ready for extubation. Review Status In Process Please Provide Date Initial DC 04/22/18 Assessment Was Performed Next Review Type Continued Stay Review
--- NOTE | 2018-04-23 15:55 | PC.NURSE ---
Dayshift Note: Pt received on ventilator, FiO2 40%, PEEP 5, TV 600, RR 18. ABG drawn by oncoming RN and showed PAO2 of 55, ventilator adjustments made. Pt sedated on propofol gtts, 45-50 mcg/kg/min. Dr. Henning to bedside in am, requested CPAP trial. Propofol gtts off at 1030, CPAP trial for 30 minutes. Pt with episodes of agitation and hyperpnea to 40s, resolved with verbal cues by RT. Pt postitive for cuff leak, cough and gag, following directions, moving all extremities. Order received for extubation, pt extubated at 1115 to 50% humidified nasal cannula. Pt expectorating copious secretions, able to clear secretions and use [employer] independently. Pt given bedside swallow eval, cleared for regular diet. Pt up to chair for ~3 hours. Will continue to monitor, notify MD with changes.
--- NOTE | 2018-04-23 16:51 | PC.NURSE ---
Addendum entered by Fabiola Villar R.N. 04/23/18 22:37: 2230 - Pt intermittently pulling off c-pap mask. Reports feeling claustrophobic. Loud snoring and intermittent airway obstruction with apnea with mask off. sats in the mid 80's. Encourage mask replacement. IV abx infusing. Home c-pap in room, no identifiable supplier immediately obvious, no power cord. RT aware. Pt reports hx of day time sleepiness, I can fall asleep standing up, that's how I chipped this tooth. Reinforced treatment plan. C-pap mask replaced. Original Note: Addendum entered by Fabiola Villar R.N. 04/23/18 20:05: 2000- Pt awake and visiting, snacks provided. Room air sats 97%, while awake. Able to sit at edge of bed and void per urinal. Occasional impulsive movements, pt tends to throw weight to sit up or stand. Reinforced safety. Call light in reach. Bed alarm on. Original Note: Addendum entered by Fabiola Villar R.N. 04/23/18 18:36: 1800 - Pt resistive to wearing hospital C-pap, reports the pressure is to high. Called family, not able to bring in his machine at this time, unable to locate c-pap management company. Encouraged pt to use hospital mask at present. Pt agreeable to try again. Original Note: 1600 - Pt sitting up in a chair. Drowsy. Requesting to take O2 off. Able to blow nose. sats remain 92% on RA. Albert d/c'd. Tele d/c'd per order. Pt request to get back into bed. Pt declines to have HOB elevated, immediately falls to sleep. Snoring with intermittent apneic periods, sats remain stable on FIO2 of 48%. Call light in reach. Bed alarm on.
[2018-04-24 00:01] VITALS: O2SAT 96
[2018-04-24 02:53] VITALS: BP 152/84; PULSE 57; RESP 20; O2SAT 95
[2018-04-24] MEDS: metroNIDAZOLE 500 MG/100 ML PIGGYBACK 100 MG IV (04:21)
[2018-04-24 05:56] VITALS: TEMP 36.4
--- NOTE | 2018-04-24 06:39 | PC.NURSE ---
Pt. so far denies pain all night, afebrile, HR occasionally parth in the 50's. Pt. wears the hospital CPAP without 02 bleed in, lungs diminished with ronchi and cleared with coughing. Pt. noted to snore loudly and frequently even with CPAP on. RT recommended trilogy trial. Continue to treat and monitor.
--- NOTE | 2018-04-24 07:27 | P.DS_ITS ---
History of Present Illness Date Patient Seen: 04/22/18 Chief complaint: facial swelling Narrative: Chief complaint: facial swelling Narrative: The patient is a 42-year-old male with a history of morbid obesity and left facial swelling secondary to a dental abscess. He presented to the emergency department April 21, 1 day prior to admission. The patient was given a prepack of clindamycin. The patient returned to the hospital within 24 hr with complaint of increasing left facial swelling and pain. He was noted to have stridor. The patient does have obstructive sleep apnea and morbid obesity. There was concern for aspiration. The patient complained of some throat pain. There was no wheezing noted. There was no rash noted. There was no obvious angioedema. As the patient was stridorous short of breath and continued to have pain he was intubated in the emergency department. During the intubation the patient aspirated his stomach contents. He ultimately was reintubated and transferred to the intensive care unit. The patient is on a ventilator at this time and is unable to provide any history. All history is obtained from the medical record. Patient did have a CT scan of the neck with contrast. This study confirmed no abscess identified. The NG tube was coiled the ET tube project projected 3 cm craniocaudal, bilateral pleural fluid collections and lower lobe consolidation was identified. Family and Social history is unobtainable as the patient is intubated, sedated, and unable to provide. Discharge Providers Date of admission: 04/22/18 07:24 Consults: 04/23/18 13:24 Consult to Speech Therapy Evaluate & Treat Comment: Physician Instructions: Evaluate and treat Discharge provider: Ximena Painter DO Discharge Date: 04/24/18 Summary Discharge Diagnosis: 1. Acute respiratory failure, present on admission. Resolved. 2. Left dental abscess, acuity unknown, present on admission. Improving. 3. Acute aspiration, present on admission. Resolved. 4. Methamphetamine use, chronic, present on admission. Stable. 5. Morbid obesity, present on admission. Stable. Hospital Course: Monster Arvizu is a 42-year-old male with past medical history significant for morbid obesity and obstructive sleep apnea who was admitted for acute respiratory failure secondary to dental abscess and methamphetamine use. The patient had increasing stridor and was subsequently intubated. The patient had aspiration event during intubation. The patient was started on IV antibiotics and steroids. He was weaned off the ventilator and extubated 2017. He was stable overnight on CPAP with 5L oxygen. He is not on supplemental oxygen during the day while awake. He recently moved to [place] and does not have a current PCP. He has a CPAP at home but reports he has no hose to his CPAP. The patient is being discharged on cefuroxime 500 mg twice daily for 12 days to complete a 14 day course. He has been instructed to abstain from methamphetamine and other drug use indefinitely. He is being discharged home in stable condition with recommendations to have a hospital follow-up visit with a primary care physician either locally or in [place], as well as, a dentist as soon as possible. Exam Vital Signs (past 8 hours): - 04/23/18 23:48 04/23/18 23:52 04/24/18 00:01 Temperature 97.9 F Pulse Rate 82 Respiratory Rate 16 Blood Pressure 138/80 Pulse Oximetry 92 96 04/24/18 02:53 04/24/18 05:56 Temperature 97.6 F Pulse Rate 57 L Respiratory Rate 20 Blood Pressure 152/84 H Pulse Oximetry 95 Fraction of Inspired Oxygen 50 Oxygen Delivery Method Room Air,CPAP Oxygen Flow Rate 5 Narrative Exam Narrative: General: Middle-aged morbidly obese gentleman lying in bed and in no acute distress, well-developed, well-nourished, appropriately interactive HEENT: Normocephalic, atraumatic. External ears without defect. Pupils equal, round, and reactive to light. Anicteric sclerae, moist conjunctivae, and no lid lag. Poor dentition with several caries. Left dental abscess appears to be resolving and without exudate. Neck: Supple with full range of motion. No jugular venous distension. No bruits. No lymphadenopathy or thyromegaly. Cardiovascular: Regular rate and rhythm without murmurs, rubs, or gallops appreciated Pulmonary: Clear to auscultation bilaterally without crackles, wheezes, or rhonchi. Normal respiratory effort with no use of accessory muscles. Abdomen: Soft, obese, bowel sounds present, nontender, nondistended. No hepatosplenomegaly or masses appreciated. Extremities: No clubbing, cyanosis, or edema. Skin: Normal temperature, turgor, and texture; no rash, ulcers, or subcutaneous nodules appreciated. Neurological: Cranial nerves grossly intact. Psychiatric: Normal mood and affect. Alert and oriented to person, place, and time. Objective Labs Result Diagrams: 04/23/18 04:36 04/23/18 04:36 Labs: Laboratory Results - last 24 hr 04/22/18 04/23/18 04/23/18 08:25 10:00 11:08 ABG pH 7.42 7.42 7.43 ABG pCO2 36.2 36.2 34.6 L ABG pO2 55 L 62 L 68 L ABG HCO3 24 23 23 ABG Total CO2 25 24 24 ABG O2 Saturation 89 L 92 L 94 L ABG Base Excess -1.0 -1.0 -2.0 FiO2 40 60 60 Discharge Plan Discharge Plan Patient Disposition: Home Discharge comment: You are being discharged home. Please have a hospital follow -up within the next week with a primary care provider in the area. You need to have your CPAP machine and settings updated and an overnight oxygen study performed as you will likely need oxygen with sleeping. Please abstain from methamphetamines and other drugs indefinitely. If you become increasingly short of breath call 911 immediately. You were prescribed an antibiotic to take twice daily for the next 12 days. You need to see a dentist as soon as possible. Discharge Med Rec/Prescriptions Prescriptions: New cefuroxime axetil 250 mg Tablet 500 mg PO BID Qty: 23 RF: 0 Discontinued clindamycin HCl 300 mg capsule 300 mg PO QID 7 Days Qty: 28 RF: 0 codeine-guaifenesin [Cheratussin AC] 118 ML liquid 5 - 10 ml PO Q4HP PRN (Reason: Cough) RF: 0 Provider Discharge Instructions Diet: Diet as Tolerated Activity: Activity as tolerated Skin/Wound/Dressing Care Report to your healthcare provider any signs of infection, such as:: chills, fever, night sweats and increased pain Visit Report/Discharge Packet Instructions: Tooth Abscess, Cefuroxime Visit Report Forms: Stroke Signs & Symptoms Discharge Data Attending Provider: Basil Núñez Admit Date/Time: 04/22/18 07:24
[2018-04-24 08:00] VITALS: BP 125/71; PULSE 64; RESP 16; TEMP 36.9; O2SAT 93
[2018-04-24] MEDS: cefUROXime 250 MG TABLET 500 MG PO (08:36)
[2018-04-24] MEDS: ENOXAPARIN 40 MG/0.4 ML SYRINGE SUBCUT (08:38)
--- NOTE | 2018-04-24 08:52 | PC.NURSE ---
Pt alert and oriented. Seen by MD and will be discharged after lunch if all is going well. Pt up to shower, managing well, steady on feet. C/of pain in left buttock, no redness or skin breakdown observed. pt encouraged to stand frequently and lie on his side when in bed. After eating all his breakfast, pt appeared sleepy and returned to bed. Observed snoring and uneven breathing with sats maintained above 92% on RA. Pt states he called his AA sponsor and is motivated to discontinue drug use. He gave up 5 years ago but has been using regularly for one year now. states he realizes that if he continues to use, he will . Pt is taking MD's advive very seriously at this time. States he is not going to return to [place] for a few weeks and needs to find a place to stay where people are not using.
[2018-04-24 09:10] VITALS: O2SAT 96
[2018-04-24 12:00] VITALS: BP 134/45; PULSE 96; RESP 18; TEMP 36.6; O2SAT 96
[2018-04-24] MEDS: INSULIN ASPART 100 UNIT/ML INSULN PEN SUBCUT (12:07)
--- NOTE | 2018-04-24 13:51 | PC.NURSE ---
Pt given dc information and script. Emphasized need to follow up with PCP for O2 and cpap machine and Dentist for dental abscess. Also advised not to take methamphetamines. IV removed and pt ready to leave once arrangements for follow up have been made by DC corporate event planner.
--- NOTE | 2018-04-24 14:15 | CM.DPC ---
DC Note: Patient discussed in multi-disciplinary rounds this morning. Dr Painter feels pt medically stable to DC home today but he would benefit from home O2. Pt required 5 L of O2 through CPAP last night according to RT. Home O2 can not be prescribed without a PCP established to follow patient. Pt meth + and ecstasy + upon admission. Pt initially states he will be going back to [place]. Met w/pt and his aunt this afternoon. Both Dr Painter and DMITRIY Ramos strongly encouraged pt to stop using drugs, establish w/a PCP and get CPAP on at night . Dr Painter has requested an appt be made for pt to establish w/a PCP. Pt admits to feeling very sleepy throughout the day and has even fallen asleep while driving. Pt now plans to stay in [place] w/family and states he will get himself to an appt., aunt says she can drive him. [facility] J[facility] Cao is making an appt w/ [facility] today, no PCP appt can be secured today for clinics in [place]. Dr Painter and DMITRIY Ramos have both encouraged pt to stop using drugs; pt agrees but denies need for resources from this ACQUISITION ADVISOR. This ACQUISITION ADVISOR strongly encouraged pt to consider taking one step at a time; i.e. getting to [facility] and using CPAP at night, this will likely make pt feel substantially better throughout the day. P: DC home w/family and close outpt f/u if pt chooses. Kalyani Berger, ACQUISITION ADVISOR
--- NOTE | 2018-04-24 14:27 | PC.NURSE ---
Pt to make own appt at [facility]. Taken by wheelchair to waiting vehicle. Pt has script and paperwork.
== END 2018-04-24 14:29 | disposition home or self-care (01) | DRG 133 ==
LOC: ED 06:14 → ICU 09:30
PROVIDERS: Internal Medicine; Admitting Provider Internal Medicine; Emergency Provider Emergency Medicine; Visit Provider Internal Medicine
DX: J96.00 Acute respiratory failure, unspecified whether with hypoxia or hypercapnia (principal); E66.01 Morbid (severe) obesity due to excess calories; Z68.43 Body mass index [BMI] 50.0-59.9, adult; J69.0 Pneumonitis due to inhalation of food and vomit; K04.7 Periapical abscess without sinus; F15.90 Other stimulant use, unspecified, uncomplicated; G47.33 Obstructive sleep apnea (adult) (pediatric)
CPT/HCPCS: 36415; 36600; 70491; 71045; 80053; 80305; 82805; 82962; 83880; 85025; 87040; 87070; 87077; 87147; 87186; 87205; 87797; 92610; 94002; 94003; 94660; 94760; 94762; 94770; 94799; 99152; 99282; 99285; 99291; 99292; J1100; J1650; J1956; J2270; J2405; J2704; J2765; J2930; J3010; Q9967